=== PATIENT | male | born 1965 | race Caucasian/White ===

== ENCOUNTER 2016-04-21 15:49 | Inpatient (IN) | payer SELFPAY ==
[~2016-04-21] VITALS: Ht 180.3 cm; Wt 98.0 kg
[~2016-04-21 15:49] MED LIST: ASPI-482 PO; ASPI81TA2 PO; LISI10TA2 PO; LISI40TA PO; MELO-150 PO; METO-269 PO; METO25TA4 PO; OMEP20CA5 PO; OMEP20TA63 PO; OXYC1TAB7 PO; PRAV40TA2 PO; SIMV40TA3 PO; TRAM50TA PO
[2016-04-21] MEDS ORDERED: NITROGLYCERIN SUBLINGUAL 0.4 MG BOTTLE OF 25. SL PRN ×2 (16:15→20:30)
[2016-04-21] MEDS ORDERED: ASPIRIN 81 MG TAB.CHEW PO ONE (16:15)
[2016-04-21 16:27] LABS: BASO # 0.1 x10^3/uL (0.0-0.2); BASO % 1 % (0-3); EOS % 0 % (0-3); HEMATOCRIT 44.4 % (39.0-53.0); HEMOGLOBIN 15.2 g/dL (13.0-17.5); LYMPH # 1.3 x10^3/uL (1.0-4.8); LYMPH % 14 % (24-48); MEAN CORPUSCULAR HEMOGLOBIN 29 pg (25-35); MEAN CORPUSCULAR HGB CONC 34 g/dL (31-37); MEAN CORPUSCULAR VOLUME 84 fL (79-100); MONO % 4 % (0-9); NEUT % 81 % (31-73); PLATELET COUNT 197 x10^3/uL (140-400); RED BLOOD COUNT 5.27 x10^6/uL (4.30-5.70); RED CELL DISTRIBUTION WIDTH 12.9 % (11.5-14.5); WHITE BLOOD COUNT 9.6 x10^3/uL (4.0-11.0)
[2016-04-21] MEDS: FENTANYL PF 100 MCG/2 ML VIAL. IV PRN ×2 (16:43→18:30)
--- NOTE | 2016-04-21 16:57 | RAD ---
Portable chest, 04/21/2016: History: Chest pain Comparison is made to a study from 07/17/2014. The heart size and pulmonary vascularity are normal. The lungs are clear. There is no evidence of pleural fluid. IMPRESSION: No acute cardiopulmonary abnormality is detected.
--- NOTE | 2016-04-21 17:23 | RAD ---
Right lower extremity venous ultrasound, 04/21/2016 : History: Ankle pain and swelling Duplex evaluation including grayscale, color flow and spectral Doppler analysis was performed. The femoral and popliteal veins show no filling defects to suggest DVT. The visualized calf veins are unremarkable. IMPRESSION: There is no sonographic evidence of deep vein thrombosis in the right lower extremity
[2016-04-21 18:09] LABS: CALCIUM 9.9 mg/dL (8.5-10.1); CREATININE 1.3 mg/dL (0.7-1.3); GFR 58.4; POTASSIUM 3.8 mmol/L (3.5-5.1)
[2016-04-21 18:15] LABS: ALBUMIN 4.2 g/dL (3.4-5.0); ALBUMIN/GLOBULIN RATIO 1.1 (1.0-1.7); TOTAL BILIRUBIN 0.6 mg/dL (0.2-1.0); TOTAL PROTEIN 7.9 g/dL (6.4-8.2)
[2016-04-21] MEDS ORDERED: ONDANSETRON PF 4 MG/2 ML VIAL. IV PRN (20:30)
[2016-04-21] MEDS ORDERED: ACETAMINOPHEN 325 MG TABLET. PO PRN (20:30)
--- NOTE | 2016-04-21 21:37 | ED.ADGEN ---
Past Medical History Past Medical History: Arrhythmia, Hypertension, Other Additional Past Medical Histor: BROKE LEFT ANKLE FOUR MNTHS AGO Past Surgical History: Other Additional Past Surgical Histo: cardiac ablation Alcohol Use: Rarely Drug Use: None Adult General Chief Complaint Chief Complaint: CHEST PAIN HPI HPI Patient is a 50 year old man, history of hypertension, arrhythmia, possibly atrial fibrillation, status post ablation several years ago, right ankle fracture for which he is receiving his physical therapy, who presents to the emergency department with complaint of chest pain, associated with mild nausea, shortness of breath, lightheadedness, and also pain in the right lower extremity with swelling. Patient denies any history of DVT or PE, states that the pain is located in the left side of his chest, is sharp and stabbing, has been coming or going over the past several days. It is associated with symptoms as above, does not otherwise radiate. States that it does get worse with activity, denies any injuries, any weakness emesis or tingling, any vision changes, any fevers, chills, GI or complaints. No previous symptoms that are similar. Review of Systems Review of Systems Constitutional: Denies fever or chills. [] Eyes: Denies change in visual acuity. [] HENT: Denies nasal congestion or sore throat. [] Respiratory: Denies cough, shortness of breath. Cardiovascular: Chest pain, no edema. Associated with mild nausea, mild shortness of breath. GI: Denies abdominal pain, nausea, vomiting, bloody stools or diarrhea. [] : Denies dysuria. [] Musculoskeletal: Denies back pain, pain in the right lower extremity. Integument: Denies rash. [] Neurologic: Denies headache, focal weakness or sensory changes. [] Endocrine: Denies polyuria or polydipsia. [] Lymphatic: Denies swollen glands. [] Psychiatric: Denies depression or anxiety. [] Current Medications Current Medications Current Medications Medications (Trade) Dose Ordered Sig/Charli Start Time Stop Time Status Last Admin Dose Admin Acetaminophen (Tylenol) 650 mg PRN Q4HRS PRN 04/21/16 20:30 04/22/16 20:29 Aspirin (Children'S Aspirin) 324 mg 1X ONCE 04/21/16 16:15 04/21/16 16:16 DC 04/21/16 16:42 324 MG Fentanyl Citrate (Fentanyl 2ml Vial) 25 mcg PRN Q15MIN PRN 04/21/16 16:15 04/22/16 16:14 04/21/16 18:30 25 MCG Morphine Sulfate 4 mg PRN Q2HR PRN 04/21/16 20:30 04/22/16 20:29 Nitroglycerin (Nitrostat) 0.4 mg PRN Q5MIN PRN 04/21/16 20:30 04/22/16 20:29 Ondansetron HCl (Zofran) 4 mg PRN Q8HRS PRN 04/21/16 20:30 04/22/16 20:29 Allergies Allergies Allergies Coded Allergies Type Severity Reaction Last Updated Verified vancomycin Allergy Intermediate Hives 06/14/14 Yes Physical Exam Physical Exam Constitutional: Well developed, well nourished, no acute distress, non-toxic appearance. [] HENT: Normocephalic, atraumatic, bilateral external ears normal, oropharynx moist, no oral exudates, nose normal. [] Eyes: PERRLA, EOMI, conjunctiva normal, no discharge. [] Neck: Normal range of motion, no tenderness, supple, no stridor. [] Cardiovascular:Heart rate regular rhythm, no murmur , S1, S2, rubs or gallops. [ ] Lungs & Thorax: Bilateral breath sounds clear to auscultation, no wheezing, rhonchi, rales. Patient with left-sided anterior chest wall tenderness to palpation, no crepitus. No lesions or external abnormalities verified. Abdomen: Bowel sounds normal, soft, no tenderness, no masses, no pulsatile masses. [] Skin: Warm, dry, no erythema, no rash. [] Back: No tenderness, no CVA tenderness. [] Extremities: No tenderness, no cyanosis, no clubbing, ROM intact, no edema. Patient with a healed laceration over the pretibial region of the right ankle, mild rectal palpation of the right calf, no edema or erythema. Neurologic: Alert and oriented X 3, normal motor function, normal sensory function, no focal deficits noted. [] Psychologic: Affect normal, judgement normal, mood normal. [] Current Patient Data Vital Signs Vital Signs Date Time Temp Pulse Resp B/P Pulse Ox O2 Delivery O2 Flow Rate FiO2 04/21/16 18:30 22 04/21/16 18:14 89 137/94 97 Room Air 04/21/16 15:55 97.7 97.7 Lab Values Laboratory Tests Test 04/21/16 16:14 04/21/16 19:16 White Blood Count 9.6x10^3/uL (4.0-11.0) Red Blood Count 5.27x10^6/uL (4.30-5.70) Hemoglobin 15.2g/dL (13.0-17.5) Hematocrit 44.4% (39.0-53.0) Mean Corpuscular Volume 84fL (79-100) Mean Corpuscular Hemoglobin 29pg (25-35) Mean Corpuscular Hemoglobin Concent 34g/dL (31-37) Red Cell Distribution Width 12.9% (11.5-14.5) Platelet Count 197x10^3/uL (140-400) Neutrophils (%) (Auto) 81% (31-73) H Lymphocytes (%) (Auto) 14% (24-48) L Monocytes (%) (Auto) 4% (0-9) Eosinophils (%) (Auto) 0% (0-3) Basophils (%) (Auto) 1% (0-3) Neutrophils # (Auto) 7.7x10^3uL (1.8-7.7) Lymphocytes # (Auto) 1.3x10^3/uL (1.0-4.8) Monocytes # (Auto) 0.4x10^3/uL (0.0-1.1) Eosinophils # (Auto) 0.0x10^3/uL (0.0-0.7) Basophils # (Auto) 0.1x10^3/uL (0.0-0.2) D-Dimer (Elana) < 0.27ug/mlFEU (0.00-0.50) Sodium Level 135mmol/L (136-145) L Potassium Level 3.8mmol/L (3.5-5.1) Chloride Level 94mmol/L (98-107) L Carbon Dioxide Level 27mmol/L (21-32) Anion Gap 14 (6-14) Blood Urea Nitrogen 18mg/dL (8-26) Creatinine 1.3mg/dL (0.7-1.3) Estimated GFR (Cockcroft-Gault) 58.4 BUN/Creatinine Ratio 14 (6-20) Glucose Level 491mg/dL (70-99) H Calcium Level 9.9mg/dL (8.5-10.1) Total Bilirubin 0.6mg/dL (0.2-1.0) Aspartate Amino Transferase (AST) 23U/L (15-37) Alanine Aminotransferase (ALT) 44U/L (16-63) Alkaline Phosphatase 89U/L (46-116) Troponin I Quantitative < 0.017ng/mL (0.000-0.055) JX-Unc-B-Type Natriuretic Peptide 20pg/mL (0-124) Total Protein 7.9g/dL (6.4-8.2) Albumin 4.2g/dL (3.4-5.0) Albumin/Globulin Ratio 1.1 (1.0-1.7) Lipase 136U/L (73-393) Glucose (Fingerstick) 338mg/dL (70-99) H Laboratory Tests 04/21/16 16:14 Laboratory Tests 04/21/16 16:14 EKG EKG EC: Sinus rhythm, heart rate 70 beats minute, upright axis, QTC of 389, AK of 156, QRS of 98, patient's elevated as of] hypertrophy, no ST depressions identified, patient with T-wave inversions noted in lead 3, contour abnormality is noted in the lateral leads. Abnormal ECG, does not meet STEMI criteria. As interpreted by me. No prior for comparison. [] Radiology/Procedures Radiology/Procedures [] [facility] [address] [place] [address] IMAGING REPORT Signed PATIENT: HERMILA CHEEMA ACCOUNT: [id number] : 1965 LOCATION: ER AGE: 50 SEX: M EXAM STATUS: REG ER ORD. PHYSICIAN: GAGANDEEP KRUGER DO REASON: Pain/swelling/hx of ankle frx PROCEDURE: VENOUS LOWER EXTREMITY RIGHT Right lower extremity venous ultrasound, 04/21/2016 : History: Ankle pain and swelling Duplex evaluation including grayscale, color flow and spectral Doppler analysis was performed. The femoral and popliteal veins show no filling defects to suggest DVT. The visualized calf veins are unremarkable. IMPRESSION: There is no sonographic evidence of deep vein thrombosis in the right lower extremity DICTATED and SIGNED BY: MINISTERIO NAIR MD DATE: 04/21/16 1720 CC: TARA LEVI; GAGANDEEP KRUGER DO ~ Impressions: [facility] [address] [place] [address] IMAGING REPORT Signed PATIENT: HERMILA CHEEMA ACCOUNT: [id number] : 1965 LOCATION: ER AGE: 50 SEX: M EXAM STATUS: REG ER ORD. PHYSICIAN: GAGANDEEP KRUGER DO REASON: CP 16 PROCEDURE: PORTABLE CHEST 1V Portable chest, 04/21/2016: History: Chest pain Comparison is made to a study from 07/17/2014. The heart size and pulmonary vascularity are normal. The lungs are clear. There is no evidence of pleural fluid. IMPRESSION: No acute cardiopulmonary abnormality is detected. DICTATED and SIGNED BY: MINISTERIO NAIR MD DATE: 04/21/16 1654 CC: TARA LEVI; GAGANDEEP KRUGER DO ~ Course & Med Decision Making Course & Med Decision Making Pertinent Labs and Imaging studies reviewed. (See chart for details) Patient with oxygenation saturation of 98-100%, respiratory rate is 18 and unlabored, with no evidence of hypoxia or tachycardia. History and constellation of symptoms concerning for possible cardiac or pulmonary etiology. Discussed with patient, I do not believe this is consistent with a PE , is in the patient's examination and history, along with ultrasound of the lower extremity obtained which revealed no evidence of DVT, and d-dimer which was also negative. Discussed with patient that this could still be evidence of angina, although his initial troponin is negative and the emergency department. Findings as above discussed with Dr. Arndt, on-call for the patient's primary care provider, patient accepted to his service as a full admission to the medical telemetry floor for a cardiac evaluation, consultation with cardiology, with which the patient was in agreement. He is resting comfortably, awaiting transfer to the floor without recurrence of symptoms, bridge orders entered per discussion. Dragon Disclaimer Dragon Disclaimer This electronic medical record was generated, in whole or in part, using a voice recognition dictation system. Departure Impression: Primary Impression: Chest pain Disposition: ADMITTED INPATIENT Admitting Physician: Delisa Arndt Condition: IMPROVED GAGANDEEP KRUGER DO Apr 21, 2016 21:36
--- NOTE | 2016-04-21 21:58 | ACF ---
Admission Forms Criteria CARDIOLOGY GRG Clinical Indications for Admission to Inpatient Care ( Place 'X' for any and all applicable criteria): Hospital admission is needed for appropriate care of the patient because of ANY ONE of the following (1): [ ] I. Hemodynamic instability as indicated by ALL of the following (1)(2)(3) (4)(5) [ ]a) Vital signs or other findings not as expected for chronic patient condition or baseline [ ]b) Instability indicated by ANY ONE of the following: [ ]i) Hypotension [ ]ii) Symptomatic Tachycardia unresponsive to treatment ( e.g., analgesia, fluids, sedation as indicated) [ ]iii) Inadequate perfusion indicated by ANY ONE of the following: [ ] 1) Lactic acidosis (> 2 mmol/L) [ ] 2) New abnormal capillary refill (> 3 seconds) [ ] 3) Reduced urine output [ ] 4) New altered mental status [ ]iv) Orthostatic vital sign changes unresponsive to treatment (e.g., fluids) [ ]v) IV inotropic or vasopressor medication required to maintain adequate blood pressure or perfusion [ ] II. Severe heart failure as indicated by ANY ONE of the following(17)(18) [ ]a) Respiratory distress [ ]b) Hypotension [ ]c) Anasarca (refractory to outpatient therapy) [ ]d) Cardiac arrhythmias of immediate concern [ ]e) Myocardial ischemia [ ] III. Cardiac arrhythmias or findings of immediate concern indicated by ANY ONE of the following (19)(20): [ ] a) Heart rhythms that are inherently dangerous or unstable indicated by ANY ONE of the following (21)(22)(23): [ ] i) Resuscitated ventricular fibrillation or cardiac arrest [ ] ii) Ventricular escape rhythm [ ] iii) Sustained ventricular tachycardia (30 seconds or more of ventricular rhythm at greater than 100 beats per minute) [ ] iv) Nonsustained ventricular tachycardia and ANY ONE of the following: [ ] 1) Suspected cardiac ischemia as cause or consequence of ventricular tachycardia [ ] 2) In setting of acute myocarditis [ ] b) Unstable cardiac conduction defects indicated by ANY ONE of the following(23)(24)(25) [ ] i) Type II second-degree atrioventricular block [ ]ii) Third-degree atrioventricular block [ ]iii) New-onset left bundle branch block with suspected myocardial ischemia [ ]c) Any heart rhythm and ANY ONE of the following (21)(22)(26)(27) (28) [ ] i) Continuous long-term ECG monitoring needed (e.g., initiation of drug requiring monitoring for more than 24 hours) [ ] ii) Patient has automatic implanted cardioverter defibrillator that is repeatedly firing, malfunctioning, or in need of immediate adjustment of settings beyond the scope of ambulatory or observation care [ ]d) Heart rhythms of concern due to ANY ONE of the following: [ ] i) Hypotension [ ] ii) Respiratory distress [ ] iii) Association with other significant symptoms (e.g., bradycardia with syncope or ongoing dizziness, supraventricular tachycardia with chest pain (14)(15)(17) [ ] IV. Monitoring for cardiac contusion beyond the scope of observation care needed [A](30)(31)(32) [ ] V. Surgical or device complication (e.g., valve replacement complication , pacemaker dysfunction) (35)(41)(44)(45)(46) [ ] . Inpatient palliative care needed. [B](49) Also use Inpatient Palliative Care Criteria [ ] VII. Nonbacterial thrombotic (marantic) endocarditis (36)(43)(47)(48) [X] VIII. Cardiology condition, symptom, or finding for which emergency and observation care has failed or are not considered appropriate. [ ] IX. Acute valvular disease requiring inpatient as indicated by ANY ONE of the following (41) [ ]a) Acute valvular regurgitation (42) [ ]b) Noninfectious valvulitis (43) [ ]c) Obstructive valve thrombosis [ ]d) Paravalvular leak [ ]e) Other significant valvular disorder remaining after emergency or observation level of care (as appropriate) [ ]X. Pericardial disease requiring inpatient treatment as indicated by ANY ONE of the following (33)(34)(35)(36)(37) [ ]a) Suspected tamponade (38)(39)(40) [ ]b) Hemopericardium [ ]c) Other significant pericardial disorder remaining after emergency or observation level of care (as appropriate) [ ] XI. Cardiac ischemia beyond scope of emergency and observation care. [ ] XII. Hypertension requiring inpatient treatment as indicated by ANY ONE of the following (6)(7)(8) [ ]a) SBP greater than 220 mm Hg or DBP greater than 120 mmHg despite treatment [ ]b) SBP greater than 140 mm Hg or DBP greater than 100 mm Hg with evidence of acute end organ damage as indicated by ANY ONE of the following [ ] i) Encephalopathy [ ] ii) Acute renal failure as indicated by new onset of ANY ONE of the following (9)(10)(11)(12)(13) [ ]1) 3-fold rise in serum creatinine from baseline [ ]2) Serum creatinine greater than 4 mg/dL ( 354 micromoles/L) with acute rise greater than 0.5 mg/dL (44.2 micromoles/L) [ ]3) Reduction of more than 75% in estimated glomerular filtration rate from baseline [ ]4) Estimated glomerular filtration rate less than 35 mL/min/1.73m2 (0.59 mL/sec/1.73m2) in child up to 18 years of age [ ]5) Cessation of urine output indicated by ALL of the following [ ]A. Adequate volume status [ ]B. Inadequate urine output as indicated by ANY ONE of the following [ ]a. Urine output less than 0.3 mL/kg/hr for 24 hours [ ]b. Anuria (urine output less than 0.1 mL/kg/hr) for 12 hours [ ] iii) Aortic dissection [ ] iv) Myocardial Ischemia [ ] v) Left ventricular heart failure [ ]vi) Retinal Hemorrhage [ ]vii) Other significant finding [ ]c) Hypertension in child requiring inpatient treatment as indicated by ALL of the following(14)(15)(16) [ ] i) Outpatient treatment not effective, not available, or not appropriate [ ]ii) SBP or DBP greater than 95th percentile for age [ ]iii) Evidence of acute end organ damage as indicated by ANY ONE of the following [ ]1) Altered mental status [ ]2) Acute renal failure as indicated by new onset of ANY ONE of the following(9)(10)(11)(12)(13) [ ]A. 3-fold rise in serum creatinine from baseline [ ]B. Serum creatinine greater than 4 mg/dL (354 micromoles/L) with acute rise greater than 0.5 mg/dL (44.2 micromoles/L) [ ]C. Reduction of more than 75% in estimated glomerular filtration rate from baseline [ ]D. Estimated glomerular filtration rate less than 35 mL/min/1.73m2 (0.59 mL/sec/1.73m2) in child up to 18 years of age [ ]E. Cessation of urine output indicated by ALL of the following [ ]a. Adequate volume status [ ]b. Inadequate urine output as indicated by ANY ONE of the following [ ]i) Urine output less than 0.3 mL/kg/hr for 24 hours [ ]ii) Anuria ( urine output less than 0.1 mL/kg/hr) for 12 hours [ ]3) Severe headache [ ]4) Visual disturbance [ ]5) Retinal hemorrhage [ ]6) Other significant finding [ ]XIII. Complications of transplanted heart indicated by ANY ONE of the following(61): [ ]a) Acute graft rejection requiring inpatient management (eg, intravenous immunosuppression)(62)(63) [ ]b) Acute graft heart failure indicated by ANY ONE of the following(64): [ ]i) Hemodynamic instability [ ]ii) Cardiac arrhythmias of immediate concern [ ]iii) Pulmonary edema that is very severe (eg, mechanical ventilation needed, imminent or likely, need for 100% oxygen to keep oxygen saturation above 90%) [ ]iv) Pulmonary edema that is persistent as indicated by ALL of the following: [ ]1) New need for oxygen therapy to keep oxygen saturation above 90% (or increased FiO2 need from baseline) [ ]2) Has not improved sufficiently with emergency department or observation care IV diuretics or other heart failure treatments[E] [ ]v) Altered mental status that is severe or persistent [ ]vi) Increased creatinine (new on laboratory test) with reduction of more than 50% in estimated glomerular filtration rate from baseline [ ]vii) Progressively (ongoing) rising creatinine (known from past laboratory test) with reduction of more than 25% in estimated glomerular filtration rate from baseline [ ]viii) Acute renal failure [ ]ix) Acute peripheral ischemia (eg, examination shows pulseless, cool, mottled, or cyanotic extremity) [ ]x) Pulmonary artery catheter monitoring needed [ ]xi) Other sign or symptom of heart failure requiring inpatient treatment (ie, too severe or not responsive to outpatient and observation care treatment) [ ]c) Infection requiring inpatient management (eg, Hemodynamic instability, need for intravenous antimicrobial treatment)(66)(67)(68)(69)(70) [ ]d) Cardiac allograft vasculopathy requiring inpatient management ( eg evidence of cardiac ischemia)(71) [ ]e) Other complication of transplanted heart (eg, stroke, severe pulmonary hypertension, severe valvular dysfunction) requiring inpatient management(72) The original [facility] content created by [facility] has been revised. The portions of the content which have been revised are identified through the use of italic text or in bold, and [facility] has neither reviewed nor approved the modified material. All other unmodified content is copyright [facility]. Please see references footnoted in the original [facility] edition 2016 Admission Criteria Met?: Yes LAYO VALENCIA Apr 21, 2016 21:58
[2016-04-21] MEDS ORDERED: TRAMADOL 50 MG TABLET. PO PRN (22:30)
[2016-04-21] MEDS ORDERED: METO25TA9 PO (22:34)
[2016-04-21] MEDS ORDERED: ASPI81TA2 PO (22:34)
[2016-04-21] MEDS ORDERED: DEXTROSE 50% 25 GM / 50ML DISP.SYRIN. IV PRN (22:45)
[2016-04-21 22:49] VITALS: BP 146/79
[2016-04-21] MEDS ORDERED: TRIA1CAP3 PO (22:56)
[2016-04-21] MEDS ORDERED: INSULIN ASPART 300 UNITS/3 ML INSULN.PEN SQ ONE (23:15)
[2016-04-22] VITALS (7 sets, daily range): BP systolic 128–145; BP diastolic 54–98
[2016-04-22] MEDS: MORPHINE SULFATE 4 MG/ML DISP.SYRIN. IV PRN ×3 (05:17→16:46)
--- NOTE | 2016-04-22 06:06 | EKG ---
[facility] [address] [place] [address] Test Date: 2016-04-21 Test Time: 16:06:15 Pat Name: HERMILA CHEEMA Department: Room: 528 1 Gender: M [employer]: : 1965 Requested By: GAGANDEEP KRUGER Order Number: [id number] Reading MD: Carline Alves Measurements Intervals [place] Rate: 78 P: -6 ND: 156 QRS: 5 QRSD: 98 T: 11 QT: 338 QTc: 389 Interpretive Statements SINUS RHYTHM. MISSING LEAD V 4. OTHERWISE NORMAL EKG. Electronically Signed On 04-23-2016 21:32:02 CDT by Carline Alves
[2016-04-22 06:08] LABS: BASO % 1 % (0-3); EOS % 1 % (0-3); HEMATOCRIT 43.1 % (39.0-53.0); LYMPH # 1.5 x10^3/uL (1.0-4.8); LYMPH % 22 % (24-48); MEAN CORPUSCULAR HEMOGLOBIN 29 pg (25-35); MEAN CORPUSCULAR HGB CONC 35 g/dL (31-37); MEAN CORPUSCULAR VOLUME 82 fL (79-100); MONO % 5 % (0-9); NEUT % 71 % (31-73); PLATELET COUNT 185 x10^3/uL (140-400); RED BLOOD COUNT 5.24 x10^6/uL (4.30-5.70); RED CELL DISTRIBUTION WIDTH 13.2 % (11.5-14.5); WHITE BLOOD COUNT 6.8 x10^3/uL (4.0-11.0)
[2016-04-22 06:12] LABS: CALCIUM 9.4 mg/dL (8.5-10.1); GFR 79.1; POTASSIUM 3.5 mmol/L (3.5-5.1)
[2016-04-22 06:29] LABS: CHOLESTEROL/HDL RATIO 5.8
[2016-04-22] MEDS: FENTANYL PF 100 MCG/2 ML VIAL. IV PRN (08:35)
[2016-04-22] MEDS: TRIAMTERENE/HCTZ 37.5/25MG TABLET. PO SCH (08:35)
[2016-04-22] MEDS: ASPIRIN 81 MG TAB.CHEW PO SCH (08:35)
[2016-04-22] MEDS: PANTOPRAZOLE 40 MG TABLET. PO SCH (08:35)
[2016-04-22] MEDS: METOPROLOL SUCC 24HR ER 50 MG TAB.ER.24H. PO SCH (08:37)
[2016-04-22] MEDS: INSULIN ASPART 300 UNITS/3 ML INSULN.PEN SQ SCH ×3 (08:45→16:57)
[2016-04-22] MEDS ORDERED: ASPIRIN ENTERIC COATED 81 MG TABLET.DR. PO SCH (09:00)
[2016-04-22] MEDS ORDERED: METOPROLOL TART IMMED RELEASE 25 MG TABLET PO SCH (09:00)
--- NOTE | 2016-04-22 10:05 | PDOC2 ---
REBEKAH CARDONA TRADE MARK ATTORNEY 04/22/16 1005: CARDIAC CONSULT DATE OF CONSULT Date of Consult DATE: 04/22/16 TIME: 09:57 REASON FOR CONSULT Reason for Consult: Chest Pain REFERRING PHYSICIAN Referring Physician: Dr. Ortiz SOURCE Source: Chart review, Patient HISTORY OF PRESENT ILLNESS HISTORY OF PRESENT ILLNESS This is a 50 yo male who presented with complaints of chest pain. Patient reports pain has been intermittent for the last couple of days. Is stabbing, sharp in nature. Radiates around to his left side. Associated with shortness of breath and diaphoresis. No clear exacerbating factors. Improved with morphine. Yesterday, patient was shopping at [employer] and developed worsening chest pain, difficulty breathing, and dizziness. Came to the ED for further evaluation. No previous known h/o of DM; BS upon admission 491. History of AFIB s/p cardiac ablation. Follows with Dr. Arroyo with [facility]. Reports normal stress test 2-3 years ago. No prior h/o CAD. Recent right ankle fx- going to PT. PAST MEDICAL HISTORY Cardiovascular: AFIB (s/p ablation 2011 ), HTN, Hyperlipidemia CENTRAL NERVOUS SYSTEM: Other (no pertinent hx) GI: GERD Heme/Onc: No pertinent hx Hepatobiliary: No pertinent hx Psych: No pertinent hx Musculoskeletal: Osteoarthritis Rheumatologic: No pertinent hx Infectious disease: No pertinent hx ENT: No pertinent hx Renal/: No pertinent hx Endocrine: No pertinent hx Dermatology: No pertinent hx PAST SURGICAL HISTORY Past Surgical History: Other (see PMH) FAMILY HISTORY Family History: Coronary Artery Disease, Diabetes, Hypertension, Stroke SOCIAL HISTORY Smoke: No ALCOHOL: none Drugs: None Lives: with Family CURRENT MEDICATIONS CURRENT MEDICATIONS Current Medications Medications (Trade) Dose Ordered Sig/Charli Route PRN Reason Start Time Stop Time Status Last Admin Dose Admin Aspirin (Children'S Aspirin) 324 mg 1X ONCE PO 04/21/16 16:15 04/21/16 16:16 DC 04/21/16 16:42 Nitroglycerin (Nitrostat) 0.4 mg PRN Q5MIN PRN SL CP RATING > 1/10 04/21/16 16:15 04/22/16 16:14 04/21/16 16:42 Fentanyl Citrate (Fentanyl 2ml Vial) 25 mcg PRN Q15MIN PRN IV PAIN GREATER THAN 3/10 3/14/17 16:15 04/22/16 16:14 04/22/16 08:35 Morphine Sulfate 4 mg PRN Q2HR PRN IV PAIN 04/21/16 20:30 04/22/16 20:29 04/22/16 05:17 Pantoprazole Sodium (Protonix) 40 mg DAILYAC PO 04/22/16 07:30 04/22/16 08:35 Insulin Aspart (Novolog) 0-7 UNITS TIDWMEALS SQ 04/22/16 08:00 04/22/16 08:45 Aspirin (Children'S Aspirin) 162 mg DAILY PO 04/22/16 09:00 04/22/16 08:35 Metoprolol Succinate (Toprol Xl) 50 mg DAILY PO 04/22/16 09:00 04/22/16 08:37 Triamterene/HCTZ (Maxzide 37.5/ 25mg) 1 tab DAILY PO 04/22/16 09:00 04/22/16 08:35 Insulin Aspart (Novolog) 4 units 1X ONCE SQ 04/21/16 23:15 04/21/16 23:16 DC 04/21/16 23:41 ALLERGIES ALLERGIES: Coded Allergies: vancomycin (Verified Allergy, Intermediate, Hives, 06/14/14) ROS Review of System 14 point ROS conducted with pertinent positives noted above in HPI PHYSICAL EXAM General: Alert, Oriented X3, Cooperative, No acute distress HEENT: Atraumatic, Mucous membr. moist/pink Lungs: Clear to auscultation, Normal air movement Heart: Regular rate, Normal S1, Normal S2, Other (left chest tenderness upon palpation) Abdomen: Soft, No tenderness Extremities: Normal pulses, Other (left ankle edema ) Skin: No breakdown, No significant lesion Neuro: Normal speech, Sensation intact VITALS VITALS Vital Signs Date Time Temp Pulse Resp B/P Pulse Ox O2 Delivery O2 Flow Rate FiO2 04/22/16 09:05 Room Air 04/22/16 08:48 97.5 76 16 128/90 95 97.5 LABS Lab: Laboratory Tests Test 04/21/16 16:14 04/21/16 19:16 04/21/16 22:23 04/22/16 04:53 White Blood Count 9.6x10^3/uL (4.0-11.0) 6.8x10^3/uL (4.0-11.0) Red Blood Count 5.27x10^6/uL (4.30-5.70) 5.24x10^6/uL (4.30-5.70) Hemoglobin 15.2g/dL (13.0-17.5) 15.0g/dL (13.0-17.5) Hematocrit 44.4% (39.0-53.0) 43.1% (39.0-53.0) Mean Corpuscular Volume 84fL (79-100) 82fL (79-100) Mean Corpuscular Hemoglobin 29pg (25-35) 29pg (25-35) Mean Corpuscular Hemoglobin Concent 34g/dL (31-37) 35g/dL (31-37) Red Cell Distribution Width 12.9% (11.5-14.5) 13.2% (11.5-14.5) Platelet Count 197x10^3/uL (140-400) 185x10^3/uL (140-400) Neutrophils (%) (Auto) 81% (31-73) 71% (31-73) Lymphocytes (%) (Auto) 14% (24-48) 22% (24-48) Monocytes (%) (Auto) 4% (0-9) 5% (0-9) Eosinophils (%) (Auto) 0% (0-3) 1% (0-3) Basophils (%) (Auto) 1% (0-3) 1% (0-3) Neutrophils # (Auto) 7.7x10^3uL (1.8-7.7) 4.8x10^3uL (1.8-7.7) Lymphocytes # (Auto) 1.3x10^3/uL (1.0-4.8) 1.5x10^3/uL (1.0-4.8) Monocytes # (Auto) 0.4x10^3/uL (0.0-1.1) 0.4x10^3/uL (0.0-1.1) Eosinophils # (Auto) 0.0x10^3/uL (0.0-0.7) 0.1x10^3/uL (0.0-0.7) Basophils # (Auto) 0.1x10^3/uL (0.0-0.2) 0.0x10^3/uL (0.0-0.2) D-Dimer (Elana) < 0.27ug/mlFEU (0.00-0.50) Sodium Level 135mmol/L (136-145) 139mmol/L (136-145) Potassium Level 3.8mmol/L (3.5-5.1) 3.5mmol/L (3.5-5.1) Chloride Level 94mmol/L (98-107) 99mmol/L (98-107) Carbon Dioxide Level 27mmol/L (21-32) 32mmol/L (21-32) Anion Gap 14 (6-14) 8 (6-14) Blood Urea Nitrogen 18mg/dL (8-26) 18mg/dL (8-26) Creatinine 1.3mg/dL (0.7-1.3) 1.0mg/dL (0.7-1.3) Estimated GFR (Cockcroft-Gault) 58.4 79.1 BUN/Creatinine Ratio 14 (6-20) Glucose Level 491mg/dL (70-99) 345mg/dL (70-99) Calcium Level 9.9mg/dL (8.5-10.1) 9.4mg/dL (8.5-10.1) Total Bilirubin 0.6mg/dL (0.2-1.0) Aspartate Amino Transf (AST/SGOT) 23U/L (15-37) Alanine Aminotransferase (ALT/SGPT) 44U/L (16-63) Alkaline Phosphatase 89U/L (46-116) Troponin I Quantitative < 0.017ng/mL (0.000-0.055) < 0.017ng/mL (0.000-0.055) < 0.017ng/mL (0.000-0.055) KK-Djn-K-Type Natriuretic Peptide 20pg/mL (0-124) Total Protein 7.9g/dL (6.4-8.2) Albumin 4.2g/dL (3.4-5.0) Albumin/Globulin Ratio 1.1 (1.0-1.7) Lipase 136U/L (73-393) Glucose (Fingerstick) 338mg/dL (70-99) Triglycerides Level 448mg/dL (0-150) Cholesterol Level 221mg/dL (0-200) LDL Cholesterol, Calculated 93mg/dL (0-100) VLDL Cholesterol, Calculated 90mg/dL (0-40) HDL Cholesterol 38mg/dL (40-60) Cholesterol/HDL Ratio 5.8 Thyroid Stimulating Hormone (TSH) 0.914uIU/mL (0.358-3.74) Test 04/22/16 05:15 Glucose (Fingerstick) 335mg/dL (70-99) ASSESSMENT/PLAN ASSESSMENT/PLAN 1. Chest pain 2. Hypertension 3. Hyperlipidemia 4. h/o atrial fibrillation s/p ablation 5. Diabetes, II (new) Recommendations AMI ruled out. Chest pain reproducible with palpation to left chest but given significant risks factors and family history, will proceed with MPI to r/o ischemia. Lightheadedness possibly related to significant hyperglycemia (BS 491 upon admission) Will need diabetic teaching/dietary education DM treatment per PCP Remains in NSR- metoprolol for rate control Increase statin Problems: CHOCO BURT MD 04/22/16 2240: CARDIAC CONSULT ALLERGIES ALLERGIES: Coded Allergies: vancomycin (Verified Allergy, Intermediate, Hives, 06/14/14) ASSESSMENT/PLAN ASSESSMENT/PLAN Pt. seen and examined. Agree with above CASH MANAGEMENT SPECIALIST note. 50 y.o male with poor DM control presenting with atypical pain Normal CV exam labs reviewed. normal MPI I discussed extensively with the patient the need for better sugar control Elevated TG related to blood sugars. will follow prn. Ok to dc from CV perspective. Pt. to see Dr. Arroyo (primary cards) upon discharge. Thanks for consult. Problems: REBEKAH CARDONA APRN Apr 22, 2016 10:05 CHOCO BURT MD Apr 22, 2016 22:40
[2016-04-22] MEDS ORDERED: REGADENOSON 0.4 MG/5 ML DISP.SYRIN. IV ONE (11:15)
--- NOTE | 2016-04-22 12:35 | PDOC ---
Provider Note Provider Note Pt seen.H&P dictated. #[id number] DEQUAN ALLEN MD Apr 22, 2016 12:35
[2016-04-22] MEDS ORDERED: INSULIN ASPART 300 UNITS/3 ML INSULN.PEN SQ ONE (18:00)
--- NOTE | 2016-04-22 19:17 | RAD ---
APPROVED REPORT Test Type: Pharmacological Stress Nurse/Tech: Breonna Modi R.N. Test Indications: dyspnea, chest pain Cardiac History: Hypertension, ablation for a fib , Hypertension ablation for a fib Medications: See Electronic Medical Record Medical History: See Electronic Medical Record Resting ECG: NSR Resting Heart Rate: 77 bpm Resting Blood Pressure: 147/87mmHg Pretest Chest Pain: No chest pain Nurse/Tech Notes S1S2, lungs sound clear Consent: The procedure was explained to the patient in lay terms. Informed consent was witnessed. Rafa eout was entered into [employer]. History and Stress Test performed by Breonna Modi R.N. Pharm. Details Pharmacologic stress testing was performed using 0.4mg per 5ml of regadenoson given intravenously ove r 7-10 seconds. Stress Symptoms Dyspnea POST EXERCISE Reason for Termination: Infusion complete Max HR: 109 bpm Max Blood Pressure: 170/77mmHg Blood Pressure response to exercise: Normal blood pressure response during stress. Chest Pain: No. Arrhythmia: No. ST Change: No. INTERPRETATION Stress EKG Conclusion: No evidence of stress induced EKG changes. Imaging Protocol IMAGE PROTOCOL: Rest Tc-99m/stress Tc-99m 1 day Rest: Stress: Viability: Radiopharm.Tc99m [id number] Sestamibi [id number] 33mCi Duration 15min. 10min. Img Date 04/22/2016 04/22/2016 Inj-Img [id number]. 60min. Rest Admin Site:IV - Right AntecubitalAdministrator:JAYCE Herron Stress Admin Site: IV - Right AntecubitalAdministrator: Georges Yo, RT (R)(N) STRESS DATA End Diast. Vol.78.0mlAv. Heart Rate86.0bpm End Syst. Vol.20.0mlCO Index BSA0.0L/min Myocardial Kast105.0gEject. Raqynajo17.0% Stress Rates Pk. Fill Rate4.17EDV/secLVtime Pk. Fill 204.89msec Pk. Empty Rate5.24ESV/secLVtime Pk. Fuggv075.61msec 02/10 Pk. Fill1.38EDV/sec Stress Scores Regional WT0.00Summed WT1.00 Regional WM0.00Summed WM1.00 The rest and stress images show normal perfusion, normal contraction and thickening. LV Perf. Quant 17 Seg. SSS1.00 17 Seg. SRS5.00 17 Seg. SDS0.00 Stress Defect Extent (% LAD)0.00Rest Defect Extent (% LAD)0.00Rev. Defect Extent (% LAD)0.00 Stress Defect Extent (% LCX) 5.00Rest Defect Extent (% LCX)20.00Rev. Defect Extent (% LCX)0.00 Stress Defect Extent (% RCA)0.00Rest Defect Extent (% RCA)0.00Rev. Defect Extent (% RCA)0.00 Stress Defect Extent (% BETO)0.90Rest Defect Extent (% BETO)3.50Rev. Defect Extent (% BETO)0.00 Other Information Quality:Good Risk Assessment: Low Risk Conclusion 1. No evidence of stress induced EKG changes. 2. Normal perfusion at stress/rest 3. Normal EF at > 70% 4. Low risk study
[2016-04-22] MEDS ORDERED: ATORVASTATIN CALCIUM 10 MG TABLET. PO SCH (21:00)
[2016-04-22] MEDS ORDERED: ATORVASTATIN CALCIUM 20 MG TABLET PO SCH (21:00)
[2016-04-22] MEDS ORDERED: INSULIN DETEMIR 300 UNITS/3 ML INSULN.PEN. SQ SCH (21:00)
--- NOTE | 2016-04-23 01:08 | HP ---
ADMIT DATE: 04/22/2016 PRIMARY CARE PHYSICIAN: Dr. Hassan. ATTENDING PHYSICIAN: Dr. Allen. REASON FOR ADMISSION TO THE HOSPITAL: Intermittent chest pain. HISTORY OF PRESENT ILLNESS: The patient is a 50-year-old male patient who has a history of ablation for irregular heart rhythm, atrial fibrillation. I presume, 3 years ago at , sees Dr. Arroyo, Cardiology. He had an injury at work, he fell down and injured his ankle. He was seen by Workmen's Compensation doctor, seen Orthopedics, put on a Cam Walker, but later on was removed having more pain in the legs, came to the Emergency Room since he was having more chest pain lately, while he was working in the [facility] area. He came to the hospital. EKG was negative. Chest x-ray was negative. The patient was seen by Cardiology, had a venous Doppler, negative for DVT. PAST MEDICAL HISTORY: The patient has a history of hypertension, history of cardiac arrhythmias and ablation 3 years ago, had an injury to the ankle recently. He is being a diabetic, his sugar was high, 400 at the time of admission. PAST SURGICAL HISTORY: He has had a cardiac ablation at . ALLERGIES: VANCOMYCIN. MEDICATIONS AT HOME: Aspirin 81 mg, metoprolol 25 mg, omeprazole 20 mg, pravastatin 40 mg, and triamterene/hydrochlorothiazide 37/25 mg 1 capsule daily. PERSONAL HISTORY: No history of smoking, alcohol or drug abuse. FAMILY HISTORY: Coronary artery disease, hypertension, diabetes and stroke in the family. REVIEW OF SYSTEMS: CARDIAC: No chest pain today. LUNGS: No cough or sputum. GASTROINTESTINAL: No nausea or vomiting. EXTREMITIES: Has pain in the ankle and the leg. Rest of the 14-system was reviewed and negative. PHYSICAL EXAMINATION: GENERAL: The patient is comfortable, not in any distress. VITAL SIGNS: At the time of admission shows temperature 97, pulse 99, respirations 22, blood pressure 158/97, and 100% on room air. HEENT: Head is atraumatic. Pupils are equal. Oral cavity, no congestion. NECK: Supple. Thyroid not enlarged. JVD not elevated. CHEST: Symmetrical. CARDIOVASCULAR: S1, S2. LUNGS: Clear to auscultation. ABDOMEN: Soft, bowel sounds present, no mass palpable. EXTERNAL GENITALIA: No Ward. RECTAL: Deferred. EXTREMITIES: No calf tenderness, no edema. Some pain in the right ankle. NEUROLOGIC: Cranial nerves intact. Power 5/5 in all extremities. LABORATORY DATA: Shows a white count 9, hemoglobin 15, and platelets are 197. Electrolytes show sodium 139, potassium 3.5, chloride 99, bicarbonate 32, BUN 18, and creatinine 1.0. Glucose is 345. Troponin is 0.017. Triglycerides 448, cholesterol 221, HDL 38, and LDL is 90. TSH is 0.9. D-dimer is less than 2.7. Chest x-ray was negative. Doppler right leg was negative. EKG is negative for ischemia. FINAL IMPRESSION: 1. Chest pain, for evaluation. Had cardiac ablation in the past for cardiac arrhythmias, presumably atrial fibrillation. 2. New onset of diabetes, blood sugars 350-range. 3. Hypertension. 4. Hyperlipidemia. 5. History of recent injury to the right ankle. PLAN: At this time, admit to hospital, consultation with hospital pharmacist. Stress test is scheduled. Doppler was negative. We will have rehab for ankle problems and see how the patient's condition improves. ECHO for LVF. A!C ,sliding scale insulin and dietary consult. DEQUAN ALLEN MD DR: FAYE/deborah JOB#: [id number] / [id number] TARA Escobedo
[2016-04-23 03:00] VITALS: BP 143/94
[2016-04-23 04:14] LABS: CALCIUM 9.2 mg/dL (8.5-10.1); GFR 78.8; POTASSIUM 3.4 mmol/L (3.5-5.1)
[2016-04-23] MEDS ORDERED: INSULIN ASPART 300 UNITS/3 ML INSULN.PEN SQ SCH (07:30)
[2016-04-23 07:35] VITALS: BP 125/89
[2016-04-23] MEDS: TRIAMTERENE/HCTZ 37.5/25MG TABLET. PO SCH (08:15)
[2016-04-23] MEDS: PANTOPRAZOLE 40 MG TABLET. PO SCH (08:15)
[2016-04-23] MEDS: ASPIRIN 81 MG TAB.CHEW PO SCH (08:16)
[2016-04-23] MEDS: METOPROLOL SUCC 24HR ER 50 MG TAB.ER.24H. PO SCH (08:19)
[2016-04-23] MEDS: INSULIN ASPART 300 UNITS/3 ML INSULN.PEN SQ SCH ×4 (08:36→13:22)
[2016-04-23 10:25] VITALS: BP 146/91
[2016-04-23] MEDS ORDERED: INSU100I27 SQ (10:35)
[2016-04-23] MEDS ORDERED: INSU100I17 SQ (10:35)
[2016-04-23] MEDS ORDERED: ATOR20TA58 PO (10:35)
--- NOTE | 2016-04-23 10:40 | PDOC ---
PROGRESS NOTES Subjective Subjective feels good Objective Objective Vital Signs Date Time Temp Pulse Resp B/P Pulse Ox O2 Delivery O2 Flow Rate FiO2 04/23/16 08:19 70 125/89 04/23/16 08:00 Room Air 04/23/16 07:35 96.4 18 94 96.4 Intake and Output 04/23/16 07:00 Intake Total 940 ml Output Total 0 ml Balance 940 ml Intake Oral 940 ml Output Urine Total 0 ml # Voids 4 Physical Exam Abdomen: Soft, No tenderness Heart: Regular rate, Normal S1, Normal S2, Other (left chest tenderness upon palpation) Extremities: Normal pulses, Other (left ankle edema ) General: Alert, Oriented X3, Cooperative, No acute distress HEENT: Atraumatic, Mucous membr. moist/pink Lungs: Clear to auscultation, Normal air movement Neuro: Normal speech, Sensation intact Skin: No breakdown, No significant lesion Diagnosis Problem List Problems Medical Problems: (1) Chest pain Status: Acute (2) Musculoskeletal pain Status: Acute Assessment Assessment Problems Medical Problems: (1) Chest pain Status: Acute (2) Musculoskeletal pain Status: Acute FINAL IMPRESSION: 1. Chest pain, for evaluation. Had cardiac ablation in the past for cardiac arrhythmias, presumably atrial fibrillation. 2. New onset of diabetes, blood sugars 350-range. 3. Hypertension. 4. Hyperlipidemia. 5. History of recent injury to the right ankle. Negative Doppler. PLAN: stress test -ve sugars high , a1c 8.6 started on insulin tid+hs. d/c abbie etoday f/u jhonny out pt. At this time, admit to hospital, consultation with thread grinder tool. Stress test scheduled. Doppler was negative. We will have rehab for ankle problems and see how the patient's condition improves. Problems: Plan Plan of Care Problems Medical Problems: (1) Chest pain Status: Acute (2) Musculoskeletal pain Status: Acute Comment Review of Relevant I have reviewed the following items liz (where applicable) has been applied. Labs Laboratory Tests Test 04/22/16 11:14 04/22/16 16:48 04/22/16 20:45 04/23/16 03:37 Glucose (Fingerstick) 367mg/dL (70-99) 453mg/dL (70-99) 296mg/dL (70-99) Sodium Level 137mmol/L (136-145) Potassium Level 3.4mmol/L (3.5-5.1) Chloride Level 96mmol/L (98-107) Carbon Dioxide Level 31mmol/L (21-32) Anion Gap 10 (6-14) Blood Urea Nitrogen 19mg/dL (8-26) Creatinine 1.0mg/dL (0.7-1.3) Estimated GFR (Cockcroft-Gault) 78.8 Glucose Level 334mg/dL (70-99) Calcium Level 9.2mg/dL (8.5-10.1) Test 04/23/16 07:35 Glucose (Fingerstick) 329mg/dL (70-99) Medications Current Medications Atorvastatin Calcium (Lipitor) 10 mg QHS PO ; Start 04/22/16 at 21:00; Stop at 21:00; Status DC Atorvastatin Calcium (Lipitor) 20 mg QHS PO Last administered on 04/22/16 22: 26; Start 04/22/16 at 21:00 Insulin Aspart (Novolog) 6 units TIDAC SQ Last administered on 04/23/16 08:37 ; Start 04/23/16 at 07:30 Insulin Aspart (Novolog) 10 units TIDAC SQ ; Start 04/23/16 at 07:30; Stop 04/23 at 07:30; Status DC Insulin Aspart (Novolog) 15 units 1X ONCE SQ Last administered on 04/22/16 17 :49; Start 04/22/16 at 18:00; Stop 04/22/16 at 18:01; Status DC Insulin Detemir (Levemir) 10 units QHS SQ Last administered on 04/22/16 22:36 ; Start 04/22/16 at 21:00 Regadenoson (Lexiscan) 0.4 mg 1X ONCE IV Last administered on 04/22/16 13:18 ; Start 04/22/16 at 11:15; Stop 04/22/16 at 11:16; Status DC Vitals/I & O Vital Sign - Last 24 Hours 04/22/16 04/22/16 04/22/16 04/22/16 11:00 16:00 19:00 20:00 Temp 97.6 98.5 96.4 97.6 98.5 96.4 Pulse 64 85 84 Resp 16 16 20 B/P 138/54 134/98 136/89 Pulse Ox 96 97 94 O2 Delivery Room Air Room Air Room Air Room Air 04/22/16 04/23/16 04/23/16 04/23/16 23:28 03:00 03:00 03:53 Temp 97.7 96.6 97.7 96.6 Pulse 78 74 Resp 20 18 16 18 B/P 145/90 143/94 Pulse Ox 95 95 95 95 O2 Delivery Room Air Room Air Room Air Room Air 04/23/16 04/23/16 04/23/16 07:35 08:00 08:19 Temp 96.4 96.4 Pulse 70 70 Resp 18 B/P 125/89 125/89 Pulse Ox 94 O2 Delivery Room Air Room Air Intake and Output 04/22/16 04/22/16 04/23/16 15:00 23:00 07:00 Intake Total 940 ml Output Total 0 ml Balance 940 ml 0 ml DEQUAN ALLEN MD Apr 23, 2016 10:40
== END 2016-04-23 14:15 | disposition home or self-care (01) | DRG 639 ==
LOC: ER 15:49 → 5 NORTH 21:23
PROVIDERS: ADMIT Internal Medicine; ATTEND Internal Medicine
DX: E11.65 Type 2 diabetes mellitus with hyperglycemia (principal); R07.89 Other chest pain; I10 Essential (primary) hypertension; E78.5 Hyperlipidemia, unspecified; I48.91 Unspecified atrial fibrillation; Z83.3 Family history of diabetes mellitus; Z82.49 Family history of ischemic heart disease and other diseases of the circulatory system; Z82.3 Family history of stroke; Z88.1 Allergy status to other antibiotic agents; Z79.899 Other long term (current) drug therapy; Z79.82 Long term (current) use of aspirin
CPT/HCPCS: 36415; 71010; 78452; 80048; 80053; 80061; 82947; 83036; 83690; 83880; 84443; 84484; 85027; 85379; 93005; 93017; 93971; 96374; 96375; 96376; A9500; J1815; J2270; J2785; J3010; 99285-25

== ENCOUNTER 2017-07-03 19:56 | Emergency (ER) | payer SELFPAY ==
[2017-07-03 20:22] LABS: ADD MAN DIFF? NO
[2017-07-03] MEDS: ONDANSETRON PF 4 MG/2 ML VIAL. IV (20:22)
[2017-07-03] MEDS: IV NORMAL SALINE 1000ML BAG 1,000 ML IV (20:22)
[2017-07-03 20:24] LABS: BASO % 1 % (0-3); EOS # 0.1 x10^3/uL (0.0-0.7); EOS % 1 % (0-3); HEMATOCRIT 39.5 % (39.0-53.0); HEMOGLOBIN 13.6 g/dL (13.0-17.5); LYMPH # 1.8 x10^3/uL (1.0-4.8); LYMPH % 20 % (24-48); MEAN CORPUSCULAR HEMOGLOBIN 29 pg (25-35); MEAN CORPUSCULAR HGB CONC 34 g/dL (31-37); MEAN CORPUSCULAR VOLUME 86 fL (79-100); MONO # 0.5 x10^3/uL (0.0-1.1); MONO % 6 % (0-9); NEUT # 6.6 x10^3uL (1.8-7.7); NEUT % 73 % (31-73); PLATELET COUNT 224 x10^3/uL (140-400); RED BLOOD COUNT 4.62 x10^6/uL (4.30-5.70); RED CELL DISTRIBUTION WIDTH 13.7 % (11.5-14.5); WHITE BLOOD COUNT 9.1 x10^3/uL (4.0-11.0)
[2017-07-03] MEDS ORDERED: CONTRAST GIVEN MC (20:30)
[2017-07-03 20:36] LABS: ANION GAP 9 (6-14); BLOOD UREA NITROGEN 18 mg/dL (8-26); BUN/CREATININE RATIO 16 (6-20); CALCIUM 9.2 mg/dL (8.5-10.1); CARBON DIOXIDE 30 mmol/L (21-32); CHLORIDE 106 mmol/L (98-107); CREATININE 1.1 mg/dL (0.7-1.3); GFR 70.3; GLUCOSE 86 mg/dL (70-99); POTASSIUM 3.7 mmol/L (3.5-5.1); SODIUM 145 mmol/L (136-145)
[2017-07-03 20:42] LABS: ALBUMIN 4.1 g/dL (3.4-5.0); ALBUMIN/GLOBULIN RATIO 1.2 (1.0-1.7); ALK PHOS 115 U/L (46-116); ALT (SGPT) 53 U/L (16-63); AST (SGOT) 22 U/L (15-37); LIPASE 90 U/L (73-393); TOTAL BILIRUBIN 0.8 mg/dL (0.2-1.0); TOTAL PROTEIN 7.5 g/dL (6.4-8.2)
[2017-07-03] MEDS: IOHEXOL 300 MG/ML 100ML VIAL. IV (20:51)
[2017-07-03 21:07] LABS: BILIRUBIN,URINE NEGATIVE (NEG); CLARITY,URINE CLEAR; COLOR,URINE YELLOW; GLUCOSE,URINE NEGATIVE (NEG); NITRITE,URINE NEGATIVE (NEG); PH,URINE 5.5; PROTEIN,URINE NEGATIVE (NEG-TRACE)
[2017-07-03 21:28] LABS: BACTERIA,URINE 0 /HPF (0-FEW); RBC,URINE 0 /HPF (0-2); SQUAMOUS EPITHELIAL CELL,UR FEW /LPF; WBC,URINE 0 /HPF (0-4)
== END 2017-07-03 21:40 | disposition home or self-care (01) ==
LOC: ER 21:40
DX: K52.9 Noninfective gastroenteritis and colitis, unspecified (principal); E11.9 Type 2 diabetes mellitus without complications; I10 Essential (primary) hypertension; E78.00 Pure hypercholesterolemia, unspecified; Z88.1 Allergy status to other antibiotic agents
CPT/HCPCS: 36415; 74177; 80053; 81001; 83690; 85025; 96361; 96374; 99285-25; J2405; J7030; Q9967

== ENCOUNTER 2019-04-17 16:17 | Emergency (ER) | payer OTHER ==
[~2019-04-17] VITALS: Ht 180.3 cm; Wt 97.7 kg
[~2019-04-17 16:17] MED LIST changes: +ASPI-630 PO; -ASPI81TA2 PO; +ATOR20TA58 PO; +INSU100I17 SQ; +INSU100I27 SQ; +LISI-130 PO; -LISI40TA PO; -MELO-150 PO; +MELO15TA23 PO; +METO-239 PO; +ONDA4TAB10 SL; +SIMV40TA18 PO; -SIMV40TA3 PO; +TRIA1CAP3 PO
[2019-04-17] MEDS: MORPHINE SULFATE 4 MG/ML VIAL. IV ONE (17:18)
[2019-04-17] MEDS: ONDANSETRON PF 4 MG/2 ML VIAL. IV ONE (17:18)
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
[2019-04-17] MEDS: IV NORMAL SALINE 1000ML BAG 1,000 ML IV ONE (17:19)
[2019-04-17 17:28] LABS: BASO # 0.1 x10^3/uL (0.0-0.2); BASO % 1 % (0-3); EOS % 0 % (0-3); HEMATOCRIT 45.1 % (39.0-53.0); HEMOGLOBIN 15.5 g/dL (13.0-17.5); LYMPH # 1.3 x10^3/uL (1.0-4.8); LYMPH % 10 % (24-48); MEAN CORPUSCULAR HEMOGLOBIN 29 pg (25-35); MEAN CORPUSCULAR HGB CONC 34 g/dL (31-37); MEAN CORPUSCULAR VOLUME 83 fL (79-100); MONO # 0.6 x10^3/uL (0.0-1.1); MONO % 5 % (0-9); NEUT # 11.5 x10^3/uL (1.8-7.7); NEUT % 85 % (31-73); PLATELET COUNT 212 x10^3/uL (140-400); RED BLOOD COUNT 5.41 x10^6/uL (4.30-5.70); RED CELL DISTRIBUTION WIDTH 14.1 % (11.5-14.5); WHITE BLOOD COUNT 13.5 x10^3/uL (4.0-11.0)
[2019-04-17 17:33] LABS: BILIRUBIN,URINE NEGATIVE (NEG); CLARITY,URINE CLEAR; COLOR,URINE YELLOW; NITRITE,URINE NEGATIVE (NEG); PROTEIN,URINE NEGATIVE (NEG-TRACE); UROBILINOGEN,URINE 0.2 mg/dL (0.2 mg/dL)
[2019-04-17 17:40] LABS: CALCIUM 9.3 mg/dL (8.5-10.1); CREATININE 1.1 mg/dL (0.7-1.3); POTASSIUM 4.2 mmol/L (3.5-5.1)
[2019-04-17 17:40] LABS: BACTERIA,URINE 0 /HPF (0-FEW); RBC,URINE 0 /HPF (0-2); SQUAMOUS EPITHELIAL CELL,UR FEW /LPF; WBC,URINE 0 /HPF (0-4)
[2019-04-17 17:46] LABS: ALBUMIN 4.1 g/dL (3.4-5.0); ALBUMIN/GLOBULIN RATIO 1.3 (1.0-1.7); TOTAL BILIRUBIN 1.1 mg/dL (0.2-1.0); TOTAL PROTEIN 7.2 g/dL (6.4-8.2)
--- NOTE | 2019-04-17 17:48 | RAD ---
EXAM: US abdomen limited- anterior abdominal wall DATE: 04/17/2019 4:45 PM COMPARISON: CT 07/03/2017 INDICATION: Upper abdominal pain, evaluate hernia. TECHNIQUE: Longitudinal and transverse imaging with intermittent Doppler sampling completed with attention to anterior abdominal wall FINDINGS/ IMPRESSION: Dedicated sonographic imaging of the intra-abdominal wall was obtained. No obvious mass or periumbilical herniation is identified. Electronically signed by: Brian Dominguez MD (04/17/2019 5:45 PM) [id number]
[2019-04-17 17:57] LABS: % BANDS 2 % (0-9); % LYMPHS 11 % (24-48); % MONOS 2 % (0-10); % SEGS 85 % (35-66); PLT ESTIMATE ADEQUATE (ADEQUATE)
[2019-04-17 18:07] VITALS: BP 128/71
== END 2019-04-17 18:53 | disposition home or self-care (01) ==
LOC: ER 16:17
DX: K43.9 Ventral hernia without obstruction or gangrene (principal); E78.00 Pure hypercholesterolemia, unspecified; E11.9 Type 2 diabetes mellitus without complications; I10 Essential (primary) hypertension; Z88.1 Allergy status to other antibiotic agents
CPT/HCPCS: 36415; 76705; 80053; 81001; 83690; 85007; 85025; 96361; 96374; 96375; 99284; J2270; J2405; J7030; 99285-25

== ENCOUNTER 2019-06-27 17:18 | Emergency (ER) | payer OTHER | END 2019-06-27 18:30 | disposition left against medical advice (07) | LOC: ER 17:18 | DX: H57.89 Other specified disorders of eye and adnexa (principal); Z53.21 Procedure and treatment not carried out due to patient leaving prior to being seen by health care provider ==

== ENCOUNTER 2020-05-13 15:25 | Emergency (ER) | payer OTHER ==
[~2020-05-13] VITALS: Ht 180.3 cm; Wt 98.7 kg
[~2020-05-13 15:25] MED LIST changes: +LISI10TA16 PO; -LISI10TA2 PO
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
[2020-05-13 18:21] VITALS: BP 119/69
[2020-05-13] MEDS ORDERED: NAPR-514 PO (18:41)
[2020-05-13] MEDS ORDERED: CYCL10TA2 PO (18:41)
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
== END 2020-05-13 18:54 | disposition home or self-care (01) ==
LOC: ER 15:25
DX: G89.11 Acute pain due to trauma (principal); M54.5 Low back pain; E11.9 Type 2 diabetes mellitus without complications; E78.00 Pure hypercholesterolemia, unspecified; I10 Essential (primary) hypertension; Z98.890 Other specified postprocedural states; Z88.1 Allergy status to other antibiotic agents; V49.88XA Car occupant (driver) (passenger) injured in other specified transport accidents, initial encounter; Y93.89 Activity, other specified; Y92.413 State road as the place of occurrence of the external cause; Y99.8 Other external cause status
CPT/HCPCS: 72128; 72131; 99285

== ENCOUNTER → 2020-06-18 | Outpatient (CLI) | payer OTHER ==
[~2020-06-18] MED LIST changes: +CYCL10TA2 PO; +NAPR-514 PO
--- NOTE | 2020-06-18 16:28 | KCIC ---
MRI of the lumbar spine without contrast 06/18/2020 CLINICAL HISTORY: Low back pain which radiates down both legs. TECHNIQUE: Unenhanced T1-weighted and T2-weighted sagittal and axial and inversion recovery sagittal images of the lumbar spine were obtained. FINDINGS: Comparison is made to a CT scan of the lumbar spine dated 05/13/2020. Minimal S-shaped curvature of the thoracolumbar spine is seen. Degenerative signal changes and varyin g loss of height are seen involving all of the disks of the lumbar spine. Degenerative signal changes are seen within the marrow surrounding these discs. The conus medullaris is within normal limits in morphology, position, and signal characteristics. At the T11-12 disc space there is a minimal generalized disc bulge. Superimposed on this disc bulge i s a central/left paracentral focal disc protrusion. This measures 3 mm in AP diameter. This does not result in definite significant central spinal canal or neural foraminal stenosis. The T12-L1 disc space is within normal limits. At the L1-2 disc space there is a mild generalized disc bulge. This is eccentric to the right. Degene rative changes are seen involving the facet joints bilaterally. There is mild ligamentum flavum hyper trophy bilaterally. These findings when combined do not result in significant central spinal canal or neural foraminal stenosis. At the L2-3 disc space there is a moderate generalized disc bulge. Superimposed on this disc bulge is a focal central disc protrusion. This measures 4 mm in AP diameter. Degenerative changes are seen in volving the facet joints bilaterally. There are small facet joint effusions bilaterally. There is mil d to moderate ligamentum flavum hypertrophy bilaterally. There is prominence of posterior epidural fa t. These findings when combined result in mild central spinal canal stenosis. No neural foraminal ewa nosis is seen. At the L3-4 disc space there is a mild to moderate generalized disc bulge. This is eccentric to the r ight. Degenerative changes are seen involving the facet joints bilaterally. There is mild to moderate ligamentum flavum hypertrophy bilaterally. There is prominence of posterior epidural fat. These find ings when combined result in mild central spinal canal stenosis. No neural foraminal stenosis is seen . At the L4-5 disc space there is a mild generalized disc bulge. This is eccentric to the left. Superim posed on this disc bulge is a focal central disc protrusion. This measures 2 mm in AP diameter. Degen erative changes are seen involving the facet joints bilaterally. There is mild ligamentum flavum hype rtrophy bilaterally. These findings when combined result in mild spinal canal stenosis. No neural for aminal stenosis is seen. At the L5-S1 disc space there is a mild to moderate generalized disc bulge. Superimposed on this disc bulge is a focal central disc protrusion. This measures 3 mm in AP diameter. Degenerative changes ar e seen involving the facet joints bilaterally. There is mild to moderate ligamentum flavum hypertroph y bilaterally. These findings when combined result in mild central spinal canal stenosis. Mild bilate ral neural foraminal stenosis is seen. IMPRESSION: The changes of degenerative disc disease are seen throughout the lumbar spine. These find ings result in mild central spinal canal stenosis at L2-3, L3-4, L4-5 and L5-S1. Mild bilateral neura l foraminal stenosis is seen at L5-S1. Electronically signed by: Conrado Bojorquez MD (06/18/2020 4:25 PM) [id number]
== END ==
LOC: KCIC MRI 12:40
PROVIDERS: ATTEND Physician Assistant
DX: M51.16 Intervertebral disc disorders with radiculopathy, lumbar region (principal); M48.07 Spinal stenosis, lumbosacral region; V89.2XXA Person injured in unspecified motor-vehicle accident, traffic, initial encounter
CPT/HCPCS: 72148

== ENCOUNTER 2021-05-23 14:35 | Inpatient (IN) | payer OTHER ==
[~2021-05-23] VITALS: Ht 180.3 cm; Wt 96.1 kg
[~2021-05-23 14:35] MED LIST changes: +CYCL10TA19 PO; -CYCL10TA2 PO
--- NOTE | 2021-05-23 15:16 | RAD ---
AP chest. HISTORY: SVT, supraventricular tachycardia AP view was taken of the chest. Lungs are free of infiltrates. Heart is normal in size. There is no p leural effusion. Lungs are clear. IMPRESSION: 1. No acute chest disease. Electronically signed by: Maxim Thomason MD (05/23/2021 3:13 PM) [facility]
[2021-05-23 15:22] LABS: BASO % 1 % (0-3); EOS # 0.1 x10^3/uL (0.0-0.7); EOS % 1 % (0-3); HEMATOCRIT 44.2 % (39.0-53.0); LYMPH # 1.4 x10^3/uL (1.0-4.8); LYMPH % 17 % (24-48); MEAN CORPUSCULAR HEMOGLOBIN 29 pg (25-35); MEAN CORPUSCULAR HGB CONC 34 g/dL (31-37); MEAN CORPUSCULAR VOLUME 86 fL (79-100); MONO # 0.4 x10^3/uL (0.0-1.1); MONO % 5 % (0-9); NEUT # 6.5 x10^3/uL (1.8-7.7); NEUT % 77 % (31-73); PLATELET COUNT 205 x10^3/uL (140-400); RED BLOOD COUNT 5.11 x10^6/uL (4.30-5.70); RED CELL DISTRIBUTION WIDTH 13.7 % (11.5-14.5); WHITE BLOOD COUNT 8.5 x10^3/uL (4.0-11.0)
[2021-05-23 15:32] LABS: PROTHROMBIN TIME PATIENT 12.7 SEC (11.7-14.0)
[2021-05-23 15:37] LABS: GFR 77.3; POTASSIUM 3.9 mmol/L (3.5-5.1)
[2021-05-23 15:44] LABS: ALBUMIN/GLOBULIN RATIO 1.3 (1.0-1.7); MAGNESIUM 1.7 mg/dL (1.8-2.4); TOTAL PROTEIN 7.1 g/dL (6.4-8.2)
[2021-05-23] MEDS ORDERED: IV NORMAL SALINE 1000ML BAG 1,000 ML IV ONE (15:45)
--- NOTE | 2021-05-23 15:53 | PHYS DOC ---
Past Medical History Past Medical History: Diabetes-Type II, High Cholesterol, Hypertension Additional Past Medical Histor: BROKE LEFT ANKLE FOUR MONTHS AGO,SVT, seasonal allergies Past Surgical History: Other Additional Past Surgical Histo: SURGERY DONE ON BACK Smoking Status: Never Smoker Alcohol Use: None Drug Use: None General Adult EDM: Chief Complaint: RAPID HEART RATE HPI: HPI: Patient is a 56 year old male who presents with was at his primary care doctor's office today when his heart rate was in the 200s. EMS arrived and they gave him adenosine and brought him back down to a normal heart rate range. Upon arrival his heart rate was in the 80s. Patient states that he felt fine and did not feel any kind of palpitations. Patient states in the past has had an ablation on his heart for SVT. He is also on Metroprolol. Patient states that about 3 days ago he ate a chicken burrito at work and then came home and started feeling hot, broke out in a sweat, was nauseated. He states the next day he vomited bile in the morning and then had diarrhea up until yesterday after he took Imodium. He stated along with this he was having right-sided abdominal pain. He states that his brother and his parents all had heart disease. Patient's business services assistant is at . History of seasonal allergies, SVT, ablation, diabetes, hypertension, high cholesterol, GERD. He denies chest pain, shortness of breath, headache, dizziness, syncope, numbness or tingling, focal weakness, fevers, vision change, palpitations.. Review of Systems: Review of Systems: Constitutional: Denies fever or chills. [] Eyes: Denies change in visual acuity. [] HENT: Denies nasal congestion or sore throat. [] Respiratory: Denies cough or shortness of breath. [] Cardiovascular: Denies chest pain or edema. +SVT[] GI: + abdominal pain, +nausea, denies vomiting, denies bloody stools or +diarrhea. [] : Denies dysuria. [] Musculoskeletal: Denies back pain or joint pain. [] Integument: Denies rash. [] Neurologic: Denies headache, focal weakness or sensory changes. [] Endocrine: Denies polyuria or polydipsia. [] Lymphatic: Denies swollen glands. [] Psychiatric: Denies depression or anxiety. [] Heart Score: C/O Chest Pain: No HEART Score for Chest Pain: HEART Score for Chest Pain Response (Comments) Value History Slighlty/Non-Suspicious 0 ECG Normal 0 Age >45 - < 65 1 Risk Factors >3 Risk Factors or Hx CAD 2 Troponin < Normal Limit 0 Total 3 Risk Factors: Risk Factors: DM, Current or recent (<one month) smoker, HTN, HLP, family history of CAD, obesity. Risk Scores: Score 0 - 3: 2.5% MACE over next 6 weeks - Discharge Home Score 4 - 6: 20.3% MACE over next 6 weeks - Admit for Clinical Observation Score 7 - 10: 72.7% MACE over next 6 weeks - Early Invasive Strategies Allergies: Allergies: Allergies Coded Allergies Type Severity Reaction Last Updated Verified vancomycin Allergy Intermediate Hives 05/13/20 Yes Physical Exam: PE: Constitutional: Well developed, well nourished, no acute distress, non-toxic appearance. [] HENT: Normocephalic, atraumatic, bilateral external ears normal, oropharynx moist, no oral exudates, nose normal. [] Eyes: PERRLA, EOMI, conjunctiva normal, no discharge. [] Neck: Normal range of motion, no tenderness, supple, no stridor. [] Cardiovascular:Heart rate regular rhythm, no murmur [] Lungs & Thorax: Bilateral breath sounds clear to auscultation [] Abdomen: Bowel sounds normal, soft, no tenderness, no masses, no pulsatile masses. [] Skin: Warm, dry, no erythema, no rash. [] Back: No tenderness, no CVA tenderness. [] Extremities: No tenderness, no cyanosis, no clubbing, ROM intact, no edema. [] Neurologic: Alert and oriented X 3, normal motor function, normal sensory function, no focal deficits noted. [] Psychologic: Affect normal, judgement normal, mood normal. [] Current Patient Data: Labs: Laboratory Tests Test 05/23/21 15:07 White Blood Count 8.5 x10^3/uL (4.0-11.0) Red Blood Count 5.11 x10^6/uL (4.30-5.70) Hemoglobin 15.0 g/dL (13.0-17.5) Hematocrit 44.2 % (39.0-53.0) Mean Corpuscular Volume 86 fL (79-100) Mean Corpuscular Hemoglobin 29 pg (25-35) Mean Corpuscular Hemoglobin Concent 34 g/dL (31-37) Red Cell Distribution Width 13.7 % (11.5-14.5) Platelet Count 205 x10^3/uL (140-400) Neutrophils (%) (Auto) 77 % (31-73) H Lymphocytes (%) (Auto) 17 % (24-48) L Monocytes (%) (Auto) 5 % (0-9) Eosinophils (%) (Auto) 1 % (0-3) Basophils (%) (Auto) 1 % (0-3) Neutrophils # (Auto) 6.5 x10^3/uL (1.8-7.7) Lymphocytes # (Auto) 1.4 x10^3/uL (1.0-4.8) Monocytes # (Auto) 0.4 x10^3/uL (0.0-1.1) Eosinophils # (Auto) 0.1 x10^3/uL (0.0-0.7) Basophils # (Auto) 0.0 x10^3/uL (0.0-0.2) Laboratory Tests 05/23/21 15:07 Vital Signs: Vital Signs Date Time Temp Pulse Resp B/P (MAP) Pulse Ox O2 Delivery O2 Flow Rate FiO2 05/23/21 14:35 98.0 91 14 133/84 (100) 95 Room Air 98.0 EKG: EK and read by Dr. Villavicencio as sinus rhythm and no STEMI Radiology/Procedures: Radiology/Procedures: [] Impression: [facility] [address] [place] [address] IMAGING REPORT Signed PATIENT: HERMILA CHEEMA LACCOUNT: [id number] : 1965 LOCATION: ER AGE: 56 SEX: M EXAM STATUS: REG ER ORD. PHYSICIAN: ANGELINA BLACK APRN REASON: SVT PROCEDURE: PORTABLE CHEST 1V AP chest. HISTORY: SVT, supraventricular tachycardia AP view was taken of the chest. Lungs are free of infiltrates. Heart is normal in size. There is no pleural effusion. Lungs are clear. IMPRESSION: 1. No acute chest disease. Electronically signed by: Maxim Thomason MD (05/23/2021 3:13 PM) [facility] DICTATED and SIGNED BY: MAXIM THOMASON MD DATE: 05/23/21 1513 [facility] [address] [place] [address] IMAGING REPORT Signed PATIENT: HERMILA CHEEMA LACCOUNT: [id number] : 1965 LOCATION: ER AGE: 56 SEX: M EXAM STATUS: REG ER ORD. PHYSICIAN: ANGELINA BLACK APRN REASON: SVT, ABDOMINAL PAIN PROCEDURE: CT ANGIO CHEST W ABD PEL W/ PQRS Compliance Statement: One or more of the following individualized dose reduction techniques were utilized for this examination: 1. Automated exposure control 2. Adjustment of the mA and/or kV according to patient size 3. Use of iterative reconstruction technique CTA CHEST_ABDOMEN_AND PELVIS Clinical Indication: Reason: SVT, ABDOMINAL PAIN / : Comparison: None. Technique: Helical CT imaging of the chest, abdomen, and pelvis is performed after 100 cc of Omnipaque [address] angiogram protocol. 3-D MIP reconstructions of the aorta. Findings: There is no thoracic aortic dissection. Aortic arch branches are patent. The thoracic aorta is normal caliber. The abdominal aorta branches are patent. The abdominal aorta is normal caliber. The iliac and visualized femoral arteries are patent. There is no pulmonary embolus. Great vessels are normal caliber. There is coronary artery disease. Cardiac size is normal, small pericardial effusion. There is no adenopathy in the chest. The central airways are patent. There is mild bilateral dependent atelectasis. Calcified granuloma medial right lower lobe. There is no pleural abnormality. Cholelithiasis. Liver, spleen, pancreas, and adrenal glands are normal. Kidneys enhance symmetrically, no hydronephrosis. The stomach is unremarkable. There is no dilated small bowel. The appendix is normal. There is distal colon diverticulosis. No colon wall thickening is seen. There is no abdominal adenopathy or free fluid. The urinary bladder is normal. Prostate and seminal vesicles are normal. There is no pelvic free fluid. Degenerative spondylosis of the thoracic and lumbar spine. IMPRESSION: 1. There is no acute abnormality in the chest, abdomen, or pelvis. 2. Small pericardial effusion. 3. Cholelithiasis. 4. Distal colon diverticulosis. Electronically signed by: Dominguez Will MD (05/23/2021 5:12 PM) [facility] DICTATED and SIGNED BY: DOMINGUEZ WILL MD DATE: 05/23/211655 Course & Med Decision Making: Course & Med Decision Making Pertinent Labs and Imaging studies reviewed. (See chart for details) See HPI. Alert and oriented x4. Ambulatory steady gait. Skin pink warm and dry. Lungs are clear to auscultation all lobes. Speaks in full clear s entences. No extremity edema. He does lawn service for living. Abdomen soft and nontender. [] Dragon Disclaimer: Dragon Disclaimer: This electronic medical record was generated, in whole or in part, using a voice recognition dictation system. Departure Departure Impression: Primary Impression: Pericardial effusion Additional Impression: Supraventricular tachycardia Disposition: ADMITTED INPATIENT Admitting Physician: Ulices Aguilar Condition: STABLE Referrals: ULICES AGUILAR MD (PCP) ANGELINA BLACK UPSETTING MACHINE OPERATOR May 23, 2021 15:53
[2021-05-23] MEDS ORDERED: MAGNESIUM SULFATE 2GM 50 ML IV ONE (16:00)
[2021-05-23 16:17] LABS: BARBITURATES NEG (NEG); BENZODIAZEPINES NEG (NEG); CANNABINOIDS NEG (NEG); COCAINE NEG (NEG); METHADONE NEG (NEG); OPIATES NEG (NEG); PHENCYCLIDINE NEG (NEG)
[2021-05-23 16:19] LABS: AMPHETAMINE/METHAMPHETAMINE NEG (NEG)
[2021-05-23 16:24] LABS: HYALINE CASTS, URINE FEW /HPF
[2021-05-23 16:25] LABS: BACTERIA,URINE 0 /HPF (0-FEW); RBC,URINE 0 /HPF (0-2); WBC,URINE 0 /HPF (0-4)
[2021-05-23] MEDS ORDERED: IOHEXOL 350 MG/ML 100 ML VIAL. IV ONE (16:30)
[2021-05-23] MEDS ORDERED: CONTRAST GIVEN. MC PRN (16:30)
--- NOTE | 2021-05-23 17:15 | RAD ---
PQRS Compliance Statement: One or more of the following individualized dose reduction techniques were utilized for this examinat ion: 1. Automated exposure control 2. Adjustment of the mA and/or kV according to patient size 3. Use of iterative reconstruction technique CTA CHEST_ABDOMEN_AND PELVIS Clinical Indication: Reason: SVT, ABDOMINAL PAIN / : Comparison: None. Technique: Helical CT imaging of the chest, abdomen, and pelvis is performed after 100 cc of Omnipaqu e [address] angiogram protocol. 3-D MIP reconstructions of the aorta. Findings: There is no thoracic aortic dissection. Aortic arch branches are patent. The thoracic aorta is normal caliber. The abdominal aorta branches are patent. The abdominal aorta is normal caliber. The iliac a nd visualized femoral arteries are patent. There is no pulmonary embolus. Great vessels are normal caliber. There is coronary artery disease. Ca rdiac size is normal, small pericardial effusion. There is no adenopathy in the chest. The central airways are patent. There is mild bilateral dependent atelectasis. Calcified granuloma me dial right lower lobe. There is no pleural abnormality. Cholelithiasis. Liver, spleen, pancreas, and adrenal glands are normal. Kidneys enhance symmetrically , no hydronephrosis. The stomach is unremarkable. There is no dilated small bowel. The appendix is normal. There is distal colon diverticulosis. No colon wall thickening is seen. There is no abdominal adenopathy or free flu id. The urinary bladder is normal. Prostate and seminal vesicles are normal. There is no pelvic free flui d. Degenerative spondylosis of the thoracic and lumbar spine. IMPRESSION: 1. There is no acute abnormality in the chest, abdomen, or pelvis. 2. Small pericardial effusion. 3. Cholelithiasis. 4. Distal colon diverticulosis. Electronically signed by: Dominguez Will MD (05/23/2021 5:12 PM) [facility]
[2021-05-23 19:57] LABS: INFLUENZA A PATIENT NEGATIVE (NEGATIVE); INFLUENZA B PATIENT NEGATIVE (NEGATIVE)
[2021-05-23 20:30] VITALS: BP 122/74
[2021-05-23] MEDS ORDERED: ATOR80TA72 PO ×2 (22:29→22:42)
[2021-05-23] MEDS ORDERED: METF100010 PO (22:42)
[2021-05-23] MEDS ORDERED: LISI20TA18 PO (22:44)
[2021-05-23] MEDS ORDERED: POTA-121 PO (22:52)
[2021-05-23] MEDS ORDERED: FURO20TA3 PO (22:52)
[2021-05-23] MEDS ORDERED: FURO-69 PO (22:52)
[2021-05-23] MEDS ORDERED: AMIT10TA PO (22:58)
[2021-05-23] MEDS ORDERED: METF-658 PO (23:03)
[2021-05-23] MEDS ORDERED: victoza SUBCUT (23:05)
[2021-05-23 23:45] VITALS: BP 102/62
--- NOTE | 2021-05-24 00:05 | NUR ---
patient resting quietly. patient stated no chest pain. no discomfort noted. call light within reach.
[2021-05-24 03:39] VITALS: BP 117/62
--- NOTE | 2021-05-24 06:57 | EKG ---
[facility] [address] [place] [address] Test Date: 2021-05-23 Test Time: 14:46:08 Pat Name: HERMILA CHEEMA Department: Room: [facility] Gender: M Manager Wound: : 1965 Requested By: ANGELINA BLACK Order Number: [id number] Reading MD: Harsh Meyer Measurements Intervals [place] Rate: 86 P: 1 WY: 154 QRS: -2 QRSD: 92 T: 17 QT: 332 QTc: 400 Interpretive Statements SINUS RHYTHM LEFTWARD AXIS Electronically Signed On 05-24-2021 8:54:40 CDT by Harsh Meyer
[2021-05-24 07:00] VITALS: BP 134/74
[2021-05-24 11:00] VITALS: BP 124/74
--- NOTE | 2021-05-24 14:05 | CONS ---
DATE OF CONSULTATION: 05/24/2021 REASON FOR CONSULTATION: SVT and pericardial effusion. HISTORY OF PRESENT ILLNESS: The patient is a pleasant 56-year-old man who was initially seen in his PCP's office due to 3 days of feeling unwell and some abdominal pain, at which point he was noted to have heart rate of greater than 200 and EMS was called. The patient apparently was given adenosine during transport to the hospital and upon arrival to the hospital, he was in stable condition with heart rates in the 80s. The patient does have a prior history of SVT ablation. He denies any syncope, palpitations, orthopnea or PND. No other hospitalizations or ER visits. Review of the CT scan of the chest, abdomen and pelvis did not reveal any significant pathology except for a small pericardial effusion. The patient has been hemodynamically stable while admitted to the hospital. PAST MEDICAL HISTORY: 1. SVT ablation. 2. Hypertension. 3. Type 2 diabetes. 4. Dyslipidemia. SOCIAL HISTORY: The patient works in the [employer] business. He denies any alcohol, tobacco or illicit drug use. FAMILY HISTORY: Noncontributory. REVIEW OF SYSTEMS: Negative for 10 out of 14 systems reviewed, unless otherwise mentioned above in HPI. PHYSICAL EXAMINATION: GENERAL: He is alert and oriented, in no acute distress. VITAL SIGNS: Afebrile, heart rate 81, respiratory rate 20, blood pressure 124/74, 96% on room air. GENERAL: He is alert and oriented, in no acute distress. HEAD AND NECK: Unremarkable. CARDIAC: Regular rate and rhythm without murmurs, rubs or gallops. LUNGS: Clear to auscultation bilaterally. ABDOMEN: Soft, nontender, nondistended. EXTREMITIES: No clubbing, cyanosis or edema. NEUROLOGIC: No focal deficits. MUSCULOSKELETAL: No trauma. DIAGNOSTIC STUDIES: CT of the chest, abdomen and pelvis again demonstrates mild pericardial effusion with cholelithiasis. No obvious dissection is noted. There is note of coronary artery disease. Hemoglobin, platelets and cardiac biomarkers are negative. Renal function was within normal limits. EKG demonstrates sinus rhythm. IMPRESSION: 1. Paroxysmal SVT. 2. Hypertension. 3. Dyslipidemia. 4. Type 2 diabetes. RECOMMENDATIONS: It appears that the patient has been working fairly hard over the last 3 days prior to admission and this likely may have triggered his SVT in the setting of possible dehydration. At this present time, the patient should continue his home medications. I have advised the patient to call his primary surgical scheduler, Dr. Arroyo, for followup with outpatient event monitoring and echocardiogram for evaluation of his pericardial effusion. Currently review of the CT demonstrates only a small to very minimal pericardial effusion and no obvious hemodynamic compromise therefore no further cardiac testing necessary at this time. Thank you for this consultation. ESPERANZA DR: Matt TID: [id number]
--- NOTE | 2021-05-25 05:27 | HP ---
DATE OF SERVICE: 05/24/2021 ADMIT DATE: 05/23/2021 ADMISSION HISTORY AND PHYSICAL CHIEF COMPLAINT AND HISTORY OF PRESENT ILLNESS: This 56-year-old male was admitted with SVT with rate of 200 in the Emergency Room. The patient went to see Dr. Cifuentes's office on the day of admission because of sharp right upper quadrant pain. He was found to have heart rate in 200s. He was given adenosine, his heart rate slowed. He was sent to the Emergency Room. He is status post ablation for SVT approximately 10 years ago. He is on metoprolol on a regular basis. He had no symptoms from the fast heart rate. He is currently with his , asymptomatic, heart rate in the 80s, awaiting cardiological evaluation. He did have a chest, abdominal and pelvic CTs done in the Emergency Room, which showed some cholelithiasis, a small pericardial effusion, some distal colonic diverticulosis and no acute abnormalities. PAST MEDICAL HISTORY: Remarkable for type 2 diabetes, hyperlipidemia, hypertension, SVT, SEASONAL ALLERGIES. PAST SURGICAL HISTORY: Remarkable for a broken ankle, lumbar surgery. MEDICATIONS: Brought with the patient, listed on the computer, have been addressed. ALLERGIES: HE IS ALLERGIC TO VANCOMYCIN. SOCIAL HISTORY: He is a lifetime nonsmoker, nondrinker, does not use drugs. FAMILY HISTORY: Noncontributory. REVIEW OF SYSTEMS: Remarkable for the right upper quadrant pain, being gone at this point in time. He has no other complaints. PHYSICAL EXAMINATION: GENERAL: He is a well-developed, well-nourished male in no acute distress. VITAL SIGNS: Stable. He is afebrile. He is awake, alert. is in attendance. HEAD, EYES, EARS, NOSE AND THROAT: Unremarkable. NECK: Supple, without adenopathy or thyromegaly. CHEST: Clear to auscultation. HEART: Regular rate and rhythm without S3, S4 or murmur. ABDOMEN: Soft, nontender, without hepatosplenomegaly or mass. EXTREMITIES: Without cyanosis, clubbing or edema. NEUROLOGIC: He is intact. LABORATORY DATA: CBC on admission is unremarkable. Troponins, likewise CMP is unremarkable. INR is within normal limits. Urine is within normal limits. Drug screen is negative and flu and COVID serologies are negative. ASSESSMENT: 1. Supraventricular tachycardia, recurrent. 2. Abdominal pain, resolved. 3. Small pericardial effusion. PLAN: Await cardiological consultation with suggestions for changes if any with likely discharge later today. DOMINIQUE/CHARLOTTE/LI DR: Rob TID: [id number]
== END 2021-05-24 17:17 | disposition home or self-care (01) | DRG 315 ==
LOC: ER 14:35 → 6 SOUTH 17:27
PROVIDERS: ADMIT Family Medicine; ATTEND Family Medicine
DX: I31.3 Pericardial effusion (noninflammatory) (principal); I47.1 Supraventricular tachycardia; E11.9 Type 2 diabetes mellitus without complications; E78.00 Pure hypercholesterolemia, unspecified; E78.5 Hyperlipidemia, unspecified; I10 Essential (primary) hypertension; K57.30 Diverticulosis of large intestine without perforation or abscess without bleeding; K80.20 Calculus of gallbladder without cholecystitis without obstruction; K21.9 Gastro-esophageal reflux disease without esophagitis; Z88.8 Allergy status to other drugs, medicaments and biological substances; Z20.822 Contact with and (suspected) exposure to COVID-19
CPT/HCPCS: 36415; 71045; 71275; 74177; 80053; 80307; 81001; 82962; 83735; 83880; 84443; 84484; 85025; 85610; 87428; 93005; J3475; J7030; Q9967; 99285-25; G0378